=== PATIENT | male | born 1955 | race Caucasian/White ===

== ENCOUNTER 2024-05-14 08:10 | Day surgery (SDC) | payer OTHER, MEDICARE ==
[~2024-05-14] VITALS: Ht 177.8 cm; Wt 141.0 kg
[~2024-05-14 08:10] MED LIST: ASPIRIN81 MG PO; IBLOOD GLUCOSE TEST STRIP 1 EA TEST VI PRN; LACTATED RINGER'S 1,000 ML IV SCH; LEVOTHYROXINE200 MCG PO; LIDOCAINE HCL 1% 5 ML SDV INJ ONE; MIDAZOLAM HCL 5 MG/5 ML VIAL IV PRN; fentaNYL citrate 100 MCG/2 ML VIAL IV PRN
[2024-05-14 08:33] VITALS: BP 185/95; BP 85/95
[2024-05-14] MEDS ORDERED: DILTIAZEM HCL30 MG PO (08:51)
[2024-05-14] MEDS ORDERED: MIDAZOLAM HCL 5 MG/5 ML VIAL ONE (09:11)
[2024-05-14] MEDS ORDERED: fentaNYL citrate 100 MCG/2 ML VIAL ONE (09:11)
[2024-05-14] MEDS ORDERED: MIDAZOLAM HCL 2 MG/2 ML VIAL ONE (10:15)
--- NOTE | 2024-05-14 10:46 | NUR ---
05/14/24 1046 Kayla Solorzano 1031-PATIENT ARRIVED TO PACU ON 3L NC RR EVEN AWAKE LAYING LEFT LATERAL ABDOMEN ROUND AND DISTENDED ENCOURAGED TO PASS GAS. DENIES PAIN OR NAUSEA. IVF INFUSING. SR HR 70'S 1043-BP CUFF HAS BEEN READJUSTED AND CHANGED TO BIGGER SIZE BP'S RANGING 193-195/110-115. DR. SEQUEIRA AT BEDSIDE. NO NEW ORDERS RECEIVED. DISCUSSED WITH PATIENT ABOUT FOLLOWING UP WITH PCP. 1046-PATIENT HAS EYES CLOSED PLACED ON RA 95% RR EVEN. LAYING SUPINE
[2024-05-14 11:52] VITALS: BP 190/114
--- NOTE | 2024-05-18 09:46 | PATH ---
[facility] [address] [place], [place] [address] Signed SPECIMEN(S): A DESCENDING COLON POLYP SPECIMEN(S): B DESCENDING COLON POLYP SPECIMEN(S): C SIGMOID POLYP SPECIMEN SOURCE: A. DESCENDING COLON POLYP B. DESCENDING COLON POLYP C. SIGMOID POLYP CLINICAL HISTORY: Pre-: 2017 history of tubular adenomas x 2, family history of colon cancer (father). Post: Diverticuli, polyps x 3. FINAL PATHOLOGIC DIAGNOSIS: A. Descending colon polyp, polypectomy: - Tubular adenoma. - Negative for high-grade dysplasia and malignancy. B. Descending colon polyp, polypectomy: - Tubular adenoma. - Negative for high-grade dysplasia and malignancy. C. Sigmoid polyp, polypectomy: - Tubular adenoma. - Negative for high-grade dysplasia and malignancy. DDF MICROSCOPIC EXAMINATION: Histologic sections of all submitted blocks are examined by light microscopy. These findings, together with the gross examination, support the pathologic diagnosis. GROSS DESCRIPTION: A. The specimen, labeled and designated "James, Anthony, descending colon polyp," is received in formalin and consists of four chen soft tissue fragments, ranging from 0.2-0.3 cm. Entirely submitted in (A1). B. The specimen, labeled and designated "James, Anthony, descending colon polyp," is received in formalin and consists of one chen soft tissue fragment, 0.7 cm. Entirely submitted in (B1). C. The specimen, labeled and designated "James, M, sigmoid polyp," is received in formalin and consists of five chen soft tissue fragments, ranging from 0.2-1.0 cm. Entirely submitted in (C1). AB (under the direct supervision of a pathologist) PATIENT NAME: ZECHARIAH HEMPHILL PATHOLOGY DATE OF : 57 REPORT #: [id number] PHYSICIAN: TAMMY PATHOLOGY PCP: Aaron Ontiveros DO REPORT IS CONFIDENTIAL AND NOT TO BE RELEASED WITHOUT AUTHORIZATION [facility] [address] [place], [place] [address] Signed The Gross Description was prepared using a voice recognition system. The report was reviewed for accuracy; however, sound-alike word errors, addition and/or deletions may occur. If there is any question about this report, please contact Client Services. ADDITIONAL NOTES: Immunohistochemical and/or in situ hybridization studies if performed in this case included appropriate positive controls that reacted as expected. This test was developed and its performance characteristics determined by [facility]. It has not been cleared or approved by the U.S. Food and Drug Administration. The FDA has determined that such clearance or approval is not necessary. This test is used for clinical purposes. It should not be regarded as investigational or for research. [facility] is certified under the Clinical Laboratory Improvement Amendments of 1988 (CLIA) as qualified to perform high complexity clinical laboratory testing. PERFORMING LABORATORY: Technical component was performed by [facility], [address] [place] [address] (CLIA# [id number]). Professional interpretation was performed by [facility], [address] [place] [id number] (CLIA#: [id number]). Diagnostician: Puma Sesay DO Pathologist Electronically Signed 05/18/2024 Copies: ~ PATIENT NAME: ZECHARIAH HEMPHILL PATHOLOGY DATE OF : 57 REPORT #: [id number] PHYSICIAN: TAMMY PATHOLOGY PCP: Aaron Ontiveros DO REPORT IS CONFIDENTIAL AND NOT TO BE RELEASED WITHOUT AUTHORIZATION
--- NOTE | 2024-05-18 12:42 | OR ---
[facility] [address] [place], [place] [address] Signed DATE OF OPERATION: 05/14/2024 SURGEON: Oziel Sequeira MD PREOPERATIVE DIAGNOSIS: History of polyps (tubular adenoma x2 in 2017). POSTOPERATIVE DIAGNOSIS: 1. Sigmoid and left-sided diverticulosis. 2. Polyps x3. PROCEDURE: Total colonoscopy to cecum with cold snare polypectomy x2, cold morcellation polypectomy x1. ANESTHESIA: Intravenous sedation; fentanyl 150 mcg and Versed 11 mg. INDICATION: A 68-year-old white man is a patient of Dr. Aaron Ontiveros in [place], [place]. He is known to me from the past having undergone colonoscopy in 2017, at which time he was found to have two tubular adenomas. He does have family history of colon cancer in his father. He has no current symptoms of bleeding, diarrhea, or constipation. He does have underlying issues of atrial fibrillation episodes but is not on any advanced anticoagulant only aspirin currently. He does have. He understands the risk of bleeding, infection, and perforation. FINDINGS: The prep was good. Complete colonoscopy was undertaken of the cecum. It was challenging to achieve full intubation of the colon, but it was accomplished. He had diverticula of the sigmoid. He had three polyps in aggregate, all excised completely. Additionally, he was noted to have significant hypertension at the outset of the procedure including a blood pressure originally of 225/110. He was not given specific antihypertensive medication, only IV sedation which allowed his blood pressure to recede to 168/90. He tolerated the procedure well. He did have diverticulosis as well as the polyps, but no sign of colitis or other abnormality. PROCEDURE IN DETAIL: The patient was brought to the endoscopy suite and placed in the lateral decubitus position, given intravenous sedation to the point of slurred speech and nystagmus. Electronically Signed By: OZIEL SEQUEIRA MD 05/18/24 1242 PATIENT NAME: ZECHARIAH HEMPHILL OPERATIVE REPORT DATE OF : 57 REPORT #: [id number] PHYSICIAN: OZIEL SEQUEIRA MD PCP: Aaron Ontiveros DO REPORT IS CONFIDENTIAL AND NOT TO BE RELEASED WITHOUT AUTHORIZATION [facility] [address] [place], [place] [address] Signed Digital rectal examination was normal. An Olympus video colonoscope was passed in the rectum and manipulated throughout the colon noting numerous diverticula of the sigmoid. Additional sedation was given as needed due to the patient's discomfort. Ultimately, the scope was advanced to the cecum itself. The ileocecal valve and appendiceal orifice were normal. The scope was withdrawn from that point and careful inspection showed no sign of abnormality until the proximal descending colon where a sessile polyp was noted, this was excised with cold snare technique. Further withdrawal showed another small polyp in the sigmoid, which was similarly excised with cold morcellation technique. Ultimately, a small polyp that was pedunculated was noted in the sigmoid. This was excised with cold snare technique. Due to some bleeding, hemoclip was applied. The scope was withdrawn further and retroflexed view of the rectum was normal. Scope was removed and the patient was taken to the recovery room in good condition. CONCLUDING DIAGNOSIS: Polyps x3, completely excised. PLAN: Recommend repeat colonoscopy in 3 to 5 years based on family history and personal history of polyps. He should follow up and continue to monitor and maintain antihypertension treatment. He will return to the ongoing care of Dr. Ontiveros. MD SHAMIKA Carrasco/SKINNYL /[id number] cc: Dr. Ontiveros Copies: ~ Electronically Signed By: OZIEL SEQUEIRA MD 05/18/24 1242 PATIENT NAME: ZECHARIAH HEMPHILL OPERATIVE REPORT DATE OF : 57 REPORT #: [id number] PHYSICIAN: OZIEL SEQUEIRA MD PCP: Aaron Ontiveros DO REPORT IS CONFIDENTIAL AND NOT TO BE RELEASED WITHOUT AUTHORIZATION
== END 2024-05-14 12:00 | disposition home or self-care (01) ==
LOC: DS 08:10
PROVIDERS: ATTEND Surgery
PROC: 0DBN8ZZ Excision of Sigmoid Colon, Via Natural or Artificial Opening Endoscopic (ICD-10-PCS; 2024-05-14)
PROC: 0DBG8ZZ Excision of Left Large Intestine, Via Natural or Artificial Opening Endoscopic (ICD-10-PCS; principal; 2024-05-14 09:00)
DX: D12.4 Benign neoplasm of descending colon (principal); D12.5 Benign neoplasm of sigmoid colon; K57.30 Diverticulosis of large intestine without perforation or abscess without bleeding; I48.91 Unspecified atrial fibrillation; I10 Essential (primary) hypertension; E66.01 Morbid (severe) obesity due to excess calories; Z68.41 Body mass index [BMI] 40.0-44.9, adult; Z80.0 Family history of malignant neoplasm of digestive organs
CPT/HCPCS: 99153; G0500; J2250; J3010; J7121